=== PATIENT | male | born 1960 | race Caucasian/White ===

== ENCOUNTER 2020-07-23 08:14 | Day surgery (SDC) | payer MEDICARE, MEDICAID ==
[~2020-07-23] VITALS: Ht 177.8 cm; Wt 110.1 kg
[~2020-07-23 08:14] MED LIST: BYSTOLIC10 MG PO; MICARDIS HCT 121 TA1 PO; MOTRIN 200200 MG/TAB PO
[2020-07-23] MEDS ORDERED: PRAVACHOL 20MG20 MG PO (08:43)
[2020-07-23] MEDS ORDERED: ZYRTEC 10MG10 MG PO (08:43)
[2020-07-23] MEDS ORDERED: PLAVIX 75MG TAB75 MG PO (08:44)
[2020-07-23] MEDS ORDERED: PRINIVIL40 MG PO (08:44)
[2020-07-23] MEDS ORDERED: TENORMIN 5050 MG/TAB PO (08:49)
[2020-07-23 09:26] VITALS: BP 131/85; PULSE 58; TEMP 97.2
[2020-07-23 11:00] VITALS: BP 169/86; PULSE 57
--- NOTE | 2020-07-23 11:00 | NUR ---
Pt to [facility] via cart from [facility]. Pt tearful and crying. Pt was very anxious prior to his procedure, and has had PTSD from a previous procedure. Once pt was calm, pt ambulated to recliner with stand by assistance. Pt looks at staff, does not answer questions. Pt states "Just get me out of here." ordered water and a muffin for pt. This was provided. Warm blankets provided. Will continue to monitor.
[2020-07-23 11:15] VITALS: BP 175/98; PULSE 54
--- NOTE | 2020-07-23 11:15 | NUR ---
Pt up pacing in the room. IV site saline locked. Pt ambulates to restroom with . Call light within reach.
--- NOTE | 2020-07-23 11:30 | NUR ---
Pt reports vomiting while in bathroom. Pt keeps repeating "Oh God, Oh God." Asked pt if he would like some Zofran to help with the nausea. Pt states "Just get me out of here." Pt leaning over on shelf. Pt asked to elaborate on how he is feeling so nursing staff can help him. Pt states "Just get me out of here. You can't help me." Pt sat down and let nurse discontinued IV site with all parts intact. had [facility] with [facility] as pt did not want to hear any details of the procedure. Discharge intructions reviewed with pt and . voices understading.
--- NOTE | 2020-07-23 11:50 | NUR ---
Pt escorted to private car via wheel chair. Pt accompanied home by his .
== END 2020-07-23 11:50 | disposition home or self-care (01) ==
LOC: SDCO 08:14
DX: D12.2 Benign neoplasm of ascending colon (principal); D12.5 Benign neoplasm of sigmoid colon; K57.30 Diverticulosis of large intestine without perforation or abscess without bleeding; K62.89 Other specified diseases of anus and rectum; K64.1 Second degree hemorrhoids; E78.5 Hyperlipidemia, unspecified; I10 Essential (primary) hypertension; Z86.73 Personal history of transient ischemic attack (TIA), and cerebral infarction without residual deficits; F17.220 Nicotine dependence, chewing tobacco, uncomplicated; Z80.6 Family history of leukemia; Z80.3 Family history of malignant neoplasm of breast; Z79.02 Long term (current) use of antithrombotics/antiplatelets; Z20.822 Contact with and (suspected) exposure to COVID-19
CPT/HCPCS: J2250; J2704; J7030

== ENCOUNTER 2021-10-28 10:19 | Day surgery (SDC) | payer MEDICARE, MEDICAID ==
[~2021-10-28] VITALS: Ht 177.8 cm; Wt 106.5 kg
[~2021-10-28 10:19] MED LIST changes: +PLAVIX 75MG TAB75 MG PO; +PRAVACHOL 20MG20 MG PO; +PRINIVIL40 MG PO; +TENORMIN 5050 MG/TAB PO; +ZYRTEC 10MG10 MG PO
[2021-10-28 13:09] VITALS: BP 158/83; PULSE 64; TEMP 97.5
[2021-10-28 13:35] VITALS: BP 140/97; PULSE 67; TEMP 96.8
--- NOTE | 2021-10-28 13:39 | NUR ---
1335 - PT arrives from procedure w/ Joleen KIM. PT is drowsy and is emotional. PT assisted from cart to chair 2:1 via ambulation. Warm blankets applied and vitals obtained. PT oriented to room and call muñoz, within reach. Visitor remains present. PT provided w / ice water per request; however, refuses to eat. Will monitor per intervals. PT denies pain and nausea.
--- NOTE | 2021-10-28 13:42 | NUR ---
1340 - PT used call muñoz to request crackers. is speaking w/ PT.
[2021-10-28 13:50] VITALS: BP 178/91; PULSE 50
--- NOTE | 2021-10-28 13:50 | NUR ---
1350 - Vitals obtained; BP is elevated, however within range of pre-op. PT expressed desire to be dischaged. PT states "I want to go home, please". RN verbalized understanding. has spoke w/ PT. PT has had a cracker. Denies nasea and pain. Call muñoz within reach if needed.
--- NOTE | 2021-10-28 14:03 | NUR ---
1400 - PT expressed desire to be discharged home; however, experienced nausea and vomitied once. IV Zofran administerd; PT states some relief. PT is resting in chair. Will continue to monitor. Emisis bag provided 1405 - Vitals obtained. BP remains elevated; however, Rexene states it is "not uncommon for him". Call muñoz remains within reach if needed. Additonal emisis bag provided.
[2021-10-28 14:05] VITALS: BP 177/92; PULSE 53
--- NOTE | 2021-10-28 14:10 | NUR ---
PT requested privacy due to fecal incontience and refused RN assistance; call muñoz remains within reach if needed and Rexene remains present. PT state nausea is "much better". RN provided two packs of soft wipes.
--- NOTE | 2021-10-28 14:18 | NUR ---
1415 - PT strongly denies nausea and strongly expressed desire to go home. IV disconnected and pressure bandage applied. NO redness or swelling noted. DC instructions and educational material reveiwed with the PT and visitor, both verbalized understanding and signed the related paperwork. Questions answered to PT satisfaction. PT refused RN assistance changing into personal clothes, however, call muñoz remains within reach.
--- NOTE | 2021-10-28 14:31 | NUR ---
PT dismissed from endo via wheelchair to PT entrence by Leah KIM. PT has DC packet and personal belonings; PT transferred into the care of Nick, who is driving private car.
== END 2021-10-28 14:30 | disposition home or self-care (01) ==
LOC: SDCO 10:19
DX: Z12.11 Encounter for screening for malignant neoplasm of colon (principal); D12.5 Benign neoplasm of sigmoid colon
CPT/HCPCS: J2405; J2704; J7120